=== PATIENT | female | born 1995 | race Caucasian/White ===

== ENCOUNTER → 2016-06-22 | Outpatient (CLI) | payer OTHER ==
[~2016-06-22] MED LIST: 'PARAFON FORTE500 M1 PO; ALLERGY RELIEF10 M1 PO; AMOXICILLIN500 M1 PO; AMOXICILLIN500 MG PO; ANTIHISTAMINE; AUGMENTIN 875875 MG PO; BACTRIM DS 8001 TA1 PO; BENTYL10 MG PO; CIPRO500 MG PO; CLARITIN10 MG PO; CORTISPORIN 1%7.5 M1 OP; DECADRON4 MG PO; DEPO-PROVER150 MG/M1 IM; DIFLUCAN150 MG PO; DOXYCYCLINE MO100 MG PO; FLONASE0.05 MG/AC NS; INHALER; KEFLEX500 MG PO; MONO-LINYAH 281 EACH PO; MOTRIN600 MG PO; MOTRIN800 MG PO; NAPROSYN500 MG PO; NAPROXEN550 MG PO; NORCO 325 MG-51 TAB PO; PERIDEX 14401440 ML PO; PHENERGAN W/DM120 ML PO; PRILOSEC20 M1 PO; PRILOSEC40 M1 PO; PROBIOTIC & AC1 EACH PO; PROTONIX20 MG PO; PROTONIX40 MG PO; ROBITUSSIN AC 110 ML PO; TRAMADOL HCL50 MG PO; VITAMIN D1000 IU PO; ZOFRAN ODT4 MG SL; ZYRTEC10 M1 PO; Zofran4 MG PO; [UNRECOGNIZED DRUG - REMARK]
== END | disposition home or self-care (01) ==
LOC: US 18:54
DX: Z34.91 Encounter for supervision of normal pregnancy, unspecified, first trimester (principal); Z3A.01 Less than 8 weeks gestation of pregnancy

== ENCOUNTER 2016-10-08 21:55 | Emergency (ER) | payer OTHER ==
[~2016-10-08] VITALS: Ht 157.4 cm; Wt 69.9 kg
[2016-10-08] MEDS ORDERED: PRENATAL1 TA3 PO (22:03)
[2016-10-08] MEDS ORDERED: CLINDAMYCIN HC300 MG PO (22:47)
== END 2016-10-08 22:51 | disposition home or self-care (01) ==
LOC: ED 21:55
DX: O99.612 Diseases of the digestive system complicating pregnancy, second trimester (principal); K08.89 Other specified disorders of teeth and supporting structures; K21.9 Gastro-esophageal reflux disease without esophagitis; Z88.6 Allergy status to analgesic agent; Z79.899 Other long term (current) drug therapy

== ENCOUNTER 2017-01-14 18:02 | Emergency (ER) | payer OTHER ==
[~2017-01-14] VITALS: Ht 157.4 cm; Wt 83.5 kg
[~2017-01-14 18:02] MED LIST changes: +CLINDAMYCIN HC300 MG PO; +PRENATAL1 TA3 PO
== END 2017-01-14 18:48 | disposition home or self-care (01) ==
LOC: ED 18:02
DX: S60.444A External constriction of right ring finger, initial encounter (principal); W49.04XA Ring or other jewelry causing external constriction, initial encounter; Y93.89 Activity, other specified; Y92.89 Other specified places as the place of occurrence of the external cause; Y99.8 Other external cause status

== ENCOUNTER 2017-02-10 18:54 | Emergency (ER) | payer OTHER ==
[~2017-02-10] VITALS: Ht 157.4 cm; Wt 79.8 kg
[2017-02-10] MEDS ORDERED: PENICILLIN VK500 MG PO (19:08)
== END 2017-02-10 19:15 | disposition home or self-care (01) ==
LOC: ED 18:54
DX: K08.89 Other specified disorders of teeth and supporting structures (principal); R03.0 Elevated blood-pressure reading, without diagnosis of hypertension; K21.9 Gastro-esophageal reflux disease without esophagitis; Z88.5 Allergy status to narcotic agent; Z79.899 Other long term (current) drug therapy